=== PATIENT | male | born 2000 | race Caucasian/White ===

== ENCOUNTER 2022-03-15 20:40 | Emergency (ER) | payer OTHER ==
[2022-03-15] MEDS ORDERED: Meclizine 12.5 MG Tab PO ONE (20:41)
[2022-03-15 23:09] LABS: CORONAVIRUS COVID-19 NAA NEGATIVE (NEGATIVE); RESPIRATORY SYNCYTIAL VIR NAA NEGATIVE (NEGATIVE)
[2022-03-15 23:43] VITALS: BP 144/84; PULSE 75
[2022-03-15 23:57] LABS: ANION GAP 5.8 mEq/L (7-13); CHLORIDE,CL 103 mmol/L (98-107); SODIUM,NA 133 mmol/L (136-145)
[2022-03-15 23:58] LABS: ESTIMATED GFR 110 mL/min (>=60)
[2022-03-16 00:09] LABS: AMPHETAMINES,URINE NEGATIVE (NEGATIVE); BARBITURATES,URINE NEGATIVE (NEGATIVE); BENZODIAZEPINE,URINE NEGATIVE (NEGATIVE); MDMA (ECSTASY), URINE NEGATIVE (NEGATIVE); METHADONE,URINE NEGATIVE (NEGATIVE); METHAMPHETAMINES,URINE NEGATIVE (NEGATIVE); OPIATES,URINE NEGATIVE (NEGATIVE); OXYCODONE,URINE NEGATIVE (NEGATIVE); PHENCYCLIDINE,URINE NEGATIVE (NEGATIVE); TCA,URINE NEGATIVE (NEGATIVE)
[2022-03-16] MEDS ORDERED: Meclizine 12.5 MG Tab PO ONE (01:06)
[2022-03-16] MEDS ORDERED: Meclizine 12.5 MG Tab ONE (01:17)
== END 2022-03-16 01:30 | disposition home or self-care (01) ==
LOC: DL.ED 20:40
DX: R42 Dizziness and giddiness (principal); Z20.822 Contact with and (suspected) exposure to COVID-19
CPT/HCPCS: 0241U; 36415; 70450; 80053; 80305; 80307; 81003; 82947; 83605; 83735; 84443; 85025; 86140; 99284; A9270